=== PATIENT | male | born 1960 | race Caucasian/White ===

== ENCOUNTER 2025-09-27 00:54 | Inpatient (IN) | payer MEDICARE, OTHER ==
[2025-09-27] MEDS ORDERED: levETIRAcetam 500 MG (5 mL) VIAL ONE (01:00)
[2025-09-27] MEDS ORDERED: Ondansetron PF 4 MG/2 ML Vial ONE (01:04)
[2025-09-27] MEDS ORDERED: PROPOFOL 200 MG/20 ML VIAL ONE (01:11)
[2025-09-27] MEDS ORDERED: Rocuronium Bromide 10 MG/ML (10ML VIAL) ONE (01:11)
[2025-09-27 01:12] LABS: #Basophils 0.04 10x3/uL (0.0-0.2); #Eosinophils 0.06 10x3/uL (0.0-0.7); #Monocytes 0.83 10x3/uL (0.11-0.59); #Neutrophils 10.92 10x3/uL (1.40-6.50); %Basophils 0.3 % (0.0-1.0); %Eosinophils 0.4 % (0.0-10.0); %Lymphocytes 16.7 % (21.0-51.0); %Monocytes 5.8 % (0.0-10.0); %Neutrophils 76.0 % (42.0-75.0); Hematocrit 41.2 % (42.0-52.0); Hemoglobin 13.3 g/dL (14.0-18.0); Mean Corpuscular Hemoglobin 27.5 pg (27.0-31.0); Mean Corpuscular Volume 85.3 fL (78.0-98.0); Platelet Count 205 10x3/uL (130-400); Red Blood Cell (RBC) Count 4.83 mill/uL (4.70-6.10); White Blood Cell (WBC) Count 14.36 10x3/uL (4.8-10.8)
[2025-09-27] MEDS ORDERED: Norepinephrine 8 MG/0.9% NS 250 ML ONE (01:31)
[2025-09-27 01:36] LABS: ALT (SGPT) 56 U/L (Less than 45); AST (SGOT) 60 U/L (11-34); Albumin 3.9 g/dL (3.1-4.5); Alkaline Phosphatase 151 U/L (40-110); Anion Gap 23 mmol/L (10-20); BUN (Urea Nitrogen) 6 mg/dL (8.4-25.7); Bilirubin, Total 0.3 mg/dL (0.3-1.2); Calc. Creatinine Clearance 0 mL/min (70-130); Calcium 8.9 mg/dL (7.8-10.44); Carbon Dioxide 15 mmol/L (23-31); Chloride 102 mmol/L (98-107); Globulin 4.2 g/dL (2.4-3.5); Glucose 219 mg/dL (80-115); Potassium 3.3 mmol/L (3.5-5.1); Sodium 137 mmol/L (136-145)
[2025-09-27 01:43] LABS: Actual Bicarbonate (HCO3a) 18.8 mEq/L (22-28); Analyzer IN Cardio ER; Base Excess (BEa) -6.4 mEq/L (-2.0 to +3.0); CO2 Tension 36.6 mmHg (35.0-45.0); Calcium, Ionized (arterial) 1.13 mmol/L (1.12-1.30); Hematocrit-ABG 38 % (42.0-52.0); Hemoglobin (Hb) 12.9 g/dL (14.0-18.0); O2 Tension (PaO2), arterial 72.6 mmHg (> 80.0); Potassium - ABG Lab 3.13 mmol/L (3.70-5.30); pH, Arterial 7.329 (7.35-7.45)
[2025-09-27 01:51] LABS: Bacteria/HPF None Seen HPF (None Seen); CAUTI Indications for Culture Alt mental st,lethar; Glucose, Urine (Dipstick) Normal (Negative); Leukocyte Negative Leu/uL (Negative); Protein, Urine (Dipstick) 200 mg/dL (Neg-Trace); RBC/HPF 0-3 HPF (0-3); Specific Gravity, Urine 1.014 (1.002-1.036); WBC/HPF 0-3 HPF (0-3)
[2025-09-27 01:52] LABS: Urine Culture Reflex No No
[2025-09-27 01:55] LABS: Cocaine Metabolite Screen Negative (Negative); THC/Cannabinoid Screen Negative (Negative); Tricyclic Screen Negative (Negative)
[2025-09-27 02:19] LABS: INR-International Normal Ratio 1.1; Prothrombin Time 14.2 sec (12.0-14.7)
[2025-09-27 02:21] LABS: PTT 30.5 sec (22.9-36.1)
[2025-09-27] MEDS ORDERED: Electrolyte Replacement Protocol 1 EACH IVPB ONE (03:54)
[2025-09-27] MEDS ORDERED: Acetaminophen 325 MG (10.15 ML) UDCUP PO PRN (03:54)
[2025-09-27] MEDS ORDERED: Calcium Carbonate 500 MG ChewTAB PO PRN (03:56)
[2025-09-27] MEDS ORDERED: Ondansetron PF 4 MG/2 ML Vial IVP PRN (03:56)
[2025-09-27] MEDS ORDERED: Fentanyl BOLUS 100 ML IVPB PRN (04:00)
[2025-09-27] MEDS ORDERED: PHOS-NAK 1 PKT PACK PO PRN (04:00)
[2025-09-27] MEDS ORDERED: Propofol BOLUS 1,000 MG/100 ML VIAL IV PRN (04:00)
[2025-09-27] MEDS ORDERED: Ventilator Sedation Protocol 1 EACH FS SCH (04:00)
[2025-09-27] MEDS ORDERED: Potassium Chloride 20 MEQ in Premix 1 BAG IVPB PRN (04:00)
[2025-09-27] MEDS ORDERED: DISCONTINUE PREVIOUS NARCOTIC PAIN MEDICATIONS AND BENZODIAZEPINES FS SCH (04:00)
[2025-09-27] MEDS: levETIRAcetam 500 MG (5 mL) VIAL SLOW IVP SCH (08:20)
[2025-09-27] MEDS: Pantoprazole 40 MG VIAL IVP SCH (08:22)
[2025-09-27] MEDS ORDERED: Pantoprazole 40 MG VIAL IVP SCH (09:00)
[2025-09-27 10:02] LABS: ALT (SGPT) 44 U/L (Less than 45); AST (SGOT) 64 U/L (11-34); Albumin 2.9 g/dL (3.1-4.5); Alkaline Phosphatase 102 U/L (40-110); Anion Gap 15 mmol/L (10-20); BUN (Urea Nitrogen) 5 mg/dL (8.4-25.7); Bilirubin, Total 0.5 mg/dL (0.3-1.2); Calc. Creatinine Clearance 89 mL/min (70-130); Calcium 8.2 mg/dL (7.8-10.44); Carbon Dioxide 20 mmol/L (23-31); Chloride 109 mmol/L (98-107); Globulin 3.6 g/dL (2.4-3.5); Glucose 96 mg/dL (80-115); Magnesium 1.8 mg/dL (1.6-2.6); Potassium 4.7 mmol/L (3.5-5.1); Sodium 139 mmol/L (136-145)
[2025-09-27] MEDS: Multivitamins, Adult 10 ML, Folic Acid 1 MG, Thiamine HCl 100 MG in Dextrose 5 %-0.45 %... IV SCH (13:22)
[2025-09-27 13:32] LABS: Hematocrit 33.6 % (42.0-52.0); Hemoglobin 11.2 g/dL (14.0-18.0)
[2025-09-27] MEDS: Mupirocin 1 GM TUBE NASAL DECOLONIZATION TP SCH (23:01)
[2025-09-28 07:27] LABS: #Basophils 0.03 10x3/uL (0.0-0.2); #Eosinophils 0.12 10x3/uL (0.0-0.7); #Monocytes 1.27 10x3/uL (0.11-0.59); #Neutrophils 7.07 10x3/uL (1.40-6.50); %Basophils 0.3 % (0.0-1.0); %Eosinophils 1.1 % (0.0-10.0); %Lymphocytes 23.0 % (21.0-51.0); %Monocytes 11.5 % (0.0-10.0); %Neutrophils 63.8 % (42.0-75.0); Hematocrit 34.4 % (42.0-52.0); Hemoglobin 11.1 g/dL (14.0-18.0); Mean Corpuscular Hemoglobin 27.5 pg (27.0-31.0); Mean Corpuscular Volume 85.1 fL (78.0-98.0); Platelet Count 153 10x3/uL (130-400); Red Blood Cell (RBC) Count 4.04 mill/uL (4.70-6.10); White Blood Cell (WBC) Count 11.07 10x3/uL (4.8-10.8)
[2025-09-28 07:43] LABS: ALT (SGPT) 36 U/L (Less than 45); AST (SGOT) 49 U/L (11-34); Albumin 2.6 g/dL (3.1-4.5); Alkaline Phosphatase 94 U/L (40-110); Anion Gap 9 mmol/L (10-20); BUN (Urea Nitrogen) 6 mg/dL (8.4-25.7); Bilirubin, Total 0.8 mg/dL (0.3-1.2); Calc. Creatinine Clearance 95 mL/min (70-130); Calcium 7.8 mg/dL (7.8-10.44); Carbon Dioxide 23 mmol/L (23-31); Chloride 108 mmol/L (98-107); Globulin 2.9 g/dL (2.4-3.5); Glucose 105 mg/dL (80-115); Magnesium 1.4 mg/dL (1.6-2.6); Potassium 3.4 mmol/L (3.5-5.1); Sodium 137 mmol/L (136-145)
[2025-09-28 07:44] LABS: Actual Bicarbonate (HCO3a) 21.6 mEq/L (22-28); Base Excess (BEa) -2.0 mEq/L (-2.0 to +3.0); CO2 Tension 33.0 mmHg (35.0-45.0); Calcium, Ionized (arterial) 1.15 mmol/L (1.12-1.30); Hematocrit-ABG 37 % (42.0-52.0); Hemoglobin (Hb) 12.5 g/dL (14.0-18.0); O2 Tension (PaO2), arterial 99.8 mmHg (> 80.0); Potassium - ABG Lab 3.44 mmol/L (3.70-5.30); Puncture Site RR; pH, Arterial 7.433 (7.35-7.45)
[2025-09-28] MEDS: Mupirocin 1 GM TUBE NASAL DECOLOIZATION TP SCH (09:07)
[2025-09-28] MEDS: Multivit, Therapeutic 1 TAB PO SCH (11:56)
[2025-09-28] MEDS: Folic Acid 1 MG TAB PO SCH (11:56)
[2025-09-28] MEDS: Acetaminophen 325 MG TAB PO PRN (12:00)
[2025-09-28] MEDS: Acetaminophen 325 MG TAB ONE (12:46)
[2025-09-28] MEDS: DC Sedation Protocol FS ONE (21:54)
[2025-09-29] MEDS: Folic Acid 1 MG TAB PO SCH (08:18)
[2025-09-29] MEDS: hydrALAZINE 20 MG/ML VIAL SLOW IVP PRN (08:18)
[2025-09-29] MEDS: Sertraline 25 MG TAB PO SCH (08:20)
[2025-09-29] MEDS: Multivit, Therapeutic 1 TAB PO SCH (08:20)
[2025-09-29] MEDS: Lisinopril 20 MG TAB PO SCH (08:20)
[2025-09-29] MEDS ORDERED: cloNIDine 0.1mg/24 Hour PATCH TD SCH (09:00)
[2025-09-29 10:46] LABS: Anion Gap 12 mmol/L (10-20); BUN (Urea Nitrogen) 5 mg/dL (8.4-25.7); Calc. Creatinine Clearance 110 mL/min (70-130); Carbon Dioxide 18 mmol/L (23-31); Chloride 114 mmol/L (98-107); Potassium 4.1 mmol/L (3.5-5.1); Sodium 140 mmol/L (136-145)
[2025-09-29 10:47] LABS: ALT (SGPT) 39 U/L (Less than 45); AST (SGOT) 49 U/L (11-34); Albumin 2.7 g/dL (3.1-4.5); Alkaline Phosphatase 91 U/L (40-110); Bilirubin, Total 0.9 mg/dL (0.3-1.2); Calcium 8.3 mg/dL (7.8-10.44); Globulin 3.7 g/dL (2.4-3.5); Glucose 116 mg/dL (80-115); Magnesium 1.6 mg/dL (1.6-2.6)
[2025-09-29] MEDS: Magnesium 2 GM/50 ML(in water) 2 GM in Premix 1 BAG IVPB PRN (10:59)
[2025-09-30] MEDS: hydrALAZINE 20 MG/ML VIAL SLOW IVP PRN (03:21)
[2025-09-30 04:56] LABS: #Basophils 0.04 10x3/uL (0.0-0.2); #Eosinophils 0.52 10x3/uL (0.0-0.7); #Monocytes 0.69 10x3/uL (0.11-0.59); #Neutrophils 4.23 10x3/uL (1.40-6.50); %Basophils 0.6 % (0.0-1.0); %Eosinophils 7.3 % (0.0-10.0); %Lymphocytes 23.3 % (21.0-51.0); %Monocytes 9.6 % (0.0-10.0); %Neutrophils 59.1 % (42.0-75.0); Hematocrit 39.1 % (42.0-52.0); Hemoglobin 12.7 g/dL (14.0-18.0); Mean Corpuscular Hemoglobin 27.6 pg (27.0-31.0); Mean Corpuscular Volume 85.0 fL (78.0-98.0); Platelet Count 180 10x3/uL (130-400); Red Blood Cell (RBC) Count 4.60 mill/uL (4.70-6.10); White Blood Cell (WBC) Count 7.16 10x3/uL (4.8-10.8)
[2025-09-30 05:16] LABS: ALT (SGPT) 44 U/L (Less than 45); AST (SGOT) 55 U/L (11-34); Albumin 2.8 g/dL (3.1-4.5); Alkaline Phosphatase 95 U/L (40-110); Anion Gap 10 mmol/L (10-20); BUN (Urea Nitrogen) Less than 4 mg/dL (8.4-25.7); Bilirubin, Total 0.7 mg/dL (0.3-1.2); Calc. Creatinine Clearance 88 mL/min (70-130); Calcium 8.4 mg/dL (7.8-10.44); Carbon Dioxide 22 mmol/L (23-31); Chloride 113 mmol/L (98-107); Globulin 3.7 g/dL (2.4-3.5); Glucose 109 mg/dL (80-115); Magnesium 1.9 mg/dL (1.6-2.6); Potassium 3.7 mmol/L (3.5-5.1); Sodium 141 mmol/L (136-145)
[2025-10-01 04:28] LABS: #Basophils 0.03 10x3/uL (0.0-0.2); #Eosinophils 0.24 10x3/uL (0.0-0.7); #Monocytes 0.69 10x3/uL (0.11-0.59); #Neutrophils 3.07 10x3/uL (1.40-6.50); %Basophils 0.4 % (0.0-1.0); %Eosinophils 3.5 % (0.0-10.0); %Lymphocytes 40.5 % (21.0-51.0); %Monocytes 10.2 % (0.0-10.0); %Neutrophils 45.3 % (42.0-75.0); Hematocrit 34.8 % (42.0-52.0); Hemoglobin 11.4 g/dL (14.0-18.0); Mean Corpuscular Hemoglobin 27.6 pg (27.0-31.0); Mean Corpuscular Volume 84.3 fL (78.0-98.0); Platelet Count 207 10x3/uL (130-400); Red Blood Cell (RBC) Count 4.13 mill/uL (4.70-6.10); White Blood Cell (WBC) Count 6.79 10x3/uL (4.8-10.8)
[2025-10-01] MEDS: Thiamine 100 MG TAB PO SCH (08:40)
[2025-10-01] MEDS ORDERED: cloNIDine 0.1 MG TAB PO PRN (09:14)
[2025-10-01] MEDS: NIFEdipine XL 30 MG ER.TAB PO SCH (17:06)
[2025-10-01] MEDS: levETIRAcetam 500 MG TAB PO SCH (20:16)
[2025-10-01] MEDS: Lisinopril 20 MG TAB PO SCH (20:20)
[2025-10-01] MEDS: Pantoprazole 40 MG DR.TAB PO SCH (20:21)
[2025-10-02] MEDS: Guaifenesin DM 100-10/5 ML UDCUP PO PRN (00:54)
[2025-10-02 03:54] LABS: #Basophils 0.03 10x3/uL (0.0-0.2); #Eosinophils 0.17 10x3/uL (0.0-0.7); #Monocytes 0.77 10x3/uL (0.11-0.59); #Neutrophils 2.92 10x3/uL (1.40-6.50); %Basophils 0.5 % (0.0-1.0); %Eosinophils 2.6 % (0.0-10.0); %Lymphocytes 40.6 % (21.0-51.0); %Monocytes 11.7 % (0.0-10.0); %Neutrophils 44.3 % (42.0-75.0); Hematocrit 32.2 % (42.0-52.0); Hemoglobin 10.8 g/dL (14.0-18.0); Mean Corpuscular Hemoglobin 27.9 pg (27.0-31.0); Mean Corpuscular Volume 83.2 fL (78.0-98.0); Platelet Count 202 10x3/uL (130-400); Red Blood Cell (RBC) Count 3.87 mill/uL (4.70-6.10); White Blood Cell (WBC) Count 6.58 10x3/uL (4.8-10.8)
[2025-10-02] MEDS: NIFEdipine XL 30 MG ER.TAB PO SCH (09:36)
[2025-10-02 11:07] VITALS: BMI 27.0
[2025-10-03 03:35] LABS: #Basophils 0.04 10x3/uL (0.0-0.2); #Eosinophils 0.14 10x3/uL (0.0-0.7); #Monocytes 1.68 10x3/uL (0.11-0.59); #Neutrophils 14.71 10x3/uL (1.40-6.50); %Basophils 0.2 % (0.0-1.0); %Eosinophils 0.8 % (0.0-10.0); %Lymphocytes 8.5 % (21.0-51.0); %Monocytes 9.2 % (0.0-10.0); %Neutrophils 81.0 % (42.0-75.0); Hematocrit 33.9 % (42.0-52.0); Hemoglobin 11.1 g/dL (14.0-18.0); Mean Corpuscular Hemoglobin 27.5 pg (27.0-31.0); Mean Corpuscular Volume 84.1 fL (78.0-98.0); Platelet Count 216 10x3/uL (130-400); Red Blood Cell (RBC) Count 4.03 mill/uL (4.70-6.10); White Blood Cell (WBC) Count 18.17 10x3/uL (4.8-10.8)
[2025-10-04 05:21] LABS: #Basophils 0.03 10x3/uL (0.0-0.2); #Eosinophils 0.25 10x3/uL (0.0-0.7); #Monocytes 0.92 10x3/uL (0.11-0.59); #Neutrophils 4.72 10x3/uL (1.40-6.50); %Basophils 0.3 % (0.0-1.0); %Eosinophils 2.9 % (0.0-10.0); %Lymphocytes 30.7 % (21.0-51.0); %Monocytes 10.7 % (0.0-10.0); %Neutrophils 55.1 % (42.0-75.0); Hematocrit 34.2 % (42.0-52.0); Hemoglobin 11.5 g/dL (14.0-18.0); Mean Corpuscular Hemoglobin 28.0 pg (27.0-31.0); Mean Corpuscular Volume 83.4 fL (78.0-98.0); Platelet Count 225 10x3/uL (130-400); Red Blood Cell (RBC) Count 4.10 mill/uL (4.70-6.10); White Blood Cell (WBC) Count 8.58 10x3/uL (4.8-10.8)
[2025-10-04 05:30] LABS: ALT (SGPT) 32 U/L (Less than 45); AST (SGOT) 45 U/L (11-34); Albumin 2.9 g/dL (3.1-4.5); Alkaline Phosphatase 77 U/L (40-110); Anion Gap 10 mmol/L (10-20); BUN (Urea Nitrogen) 5 mg/dL (8.4-25.7); Bilirubin, Total 0.4 mg/dL (0.3-1.2); Calc. Creatinine Clearance 104 mL/min (70-130); Calcium 8.1 mg/dL (7.8-10.44); Carbon Dioxide 23 mmol/L (23-31); Chloride 109 mmol/L (98-107); Globulin 3.6 g/dL (2.4-3.5); Glucose 98 mg/dL (80-115); Magnesium 1.6 mg/dL (1.6-2.6); Potassium 3.0 mmol/L (3.5-5.1); Sodium 139 mmol/L (136-145)
[2025-10-04] MEDS: Potassium Chloride 20 MEQ in Premix 1 BAG IVPB SCH (09:40)
[2025-10-04 10:48] LABS: Potassium 4.0 mmol/L (3.5-5.1)
[2025-10-05 05:03] LABS: #Basophils 0.03 10x3/uL (0.0-0.2); #Eosinophils 0.31 10x3/uL (0.0-0.7); #Monocytes 1.08 10x3/uL (0.11-0.59); #Neutrophils 5.14 10x3/uL (1.40-6.50); %Basophils 0.3 % (0.0-1.0); %Eosinophils 3.2 % (0.0-10.0); %Lymphocytes 31.9 % (21.0-51.0); %Monocytes 11.2 % (0.0-10.0); %Neutrophils 53.1 % (42.0-75.0); Hematocrit 33.2 % (42.0-52.0); Hemoglobin 10.8 g/dL (14.0-18.0); Mean Corpuscular Hemoglobin 27.3 pg (27.0-31.0); Mean Corpuscular Volume 83.8 fL (78.0-98.0); Platelet Count 239 10x3/uL (130-400); Red Blood Cell (RBC) Count 3.96 mill/uL (4.70-6.10); White Blood Cell (WBC) Count 9.67 10x3/uL (4.8-10.8)
[2025-10-05 05:17] LABS: ALT (SGPT) 31 U/L (Less than 45); AST (SGOT) 42 U/L (11-34); Albumin 3.0 g/dL (3.1-4.5); Alkaline Phosphatase 78 U/L (40-110); Anion Gap 10 mmol/L (10-20); BUN (Urea Nitrogen) 9 mg/dL (8.4-25.7); Bilirubin, Total 0.3 mg/dL (0.3-1.2); Calc. Creatinine Clearance 92 mL/min (70-130); Calcium 8.2 mg/dL (7.8-10.44); Carbon Dioxide 25 mmol/L (23-31); Chloride 107 mmol/L (98-107); Globulin 3.5 g/dL (2.4-3.5); Glucose 112 mg/dL (80-115); Magnesium 1.4 mg/dL (1.6-2.6); Potassium 3.4 mmol/L (3.5-5.1); Sodium 139 mmol/L (136-145)
[2025-10-05] MEDS: Magnesium 2 GM/50 ML(in water) 2 GM in Premix 1 BAG IVPB SCH (09:18)
[2025-10-05 11:41] LABS: Potassium 3.7 mmol/L (3.5-5.1)
[2025-10-06 04:09] LABS: #Basophils 0.05 10x3/uL (0.0-0.2); #Eosinophils 0.32 10x3/uL (0.0-0.7); #Monocytes 1.06 10x3/uL (0.11-0.59); #Neutrophils 4.84 10x3/uL (1.40-6.50); %Basophils 0.5 % (0.0-1.0); %Eosinophils 3.3 % (0.0-10.0); %Lymphocytes 34.9 % (21.0-51.0); %Monocytes 11.0 % (0.0-10.0); %Neutrophils 50.0 % (42.0-75.0); Hematocrit 35.2 % (42.0-52.0); Hemoglobin 11.5 g/dL (14.0-18.0); Mean Corpuscular Hemoglobin 27.9 pg (27.0-31.0); Mean Corpuscular Volume 85.4 fL (78.0-98.0); Platelet Count 257 10x3/uL (130-400); Red Blood Cell (RBC) Count 4.12 mill/uL (4.70-6.10); White Blood Cell (WBC) Count 9.67 10x3/uL (4.8-10.8)
[2025-10-06 04:19] LABS: ALT (SGPT) 31 U/L (Less than 45); AST (SGOT) 58 U/L (11-34); Albumin 3.3 g/dL (3.1-4.5); Alkaline Phosphatase 80 U/L (40-110); Anion Gap 10 mmol/L (10-20); BUN (Urea Nitrogen) 11 mg/dL (8.4-25.7); Bilirubin, Total 0.4 mg/dL (0.3-1.2); Calc. Creatinine Clearance 96 mL/min (70-130); Calcium 8.5 mg/dL (7.8-10.44); Carbon Dioxide 28 mmol/L (23-31); Chloride 105 mmol/L (98-107); Globulin 3.7 g/dL (2.4-3.5); Glucose 91 mg/dL (80-115); Magnesium 1.9 mg/dL (1.6-2.6); Potassium 3.9 mmol/L (3.5-5.1); Sodium 139 mmol/L (136-145)
[2025-10-06 07:35] VITALS: BMI 26.9
[2025-10-06 15:52] VITALS: BP 133/81; TEMP 98.4
== END 2025-10-06 17:07 | disposition home health service (06) | DRG 100 ==
LOC: ERS 00:54 → CCU 04:39 → 2SE 10-01 18:13
PROVIDERS: ADMIT Student in an Organized Health Care Education/Training Program; ATTEND Student in an Organized Health Care Education/Training Program
PROC: XX20X89 Monitoring of Brain Electrical Activity, Computer-aided Detection and Notification, New Technology Group 9 (ICD-10-PCS; principal; 2025-09-27)
PROC: 5A1945Z Respiratory Ventilation, 24-96 Consecutive Hours (ICD-10-PCS; 2025-09-27)
PROC: 0BH17EZ Insertion of Endotracheal Airway into Trachea, Via Natural or Artificial Opening (ICD-10-PCS; 2025-09-27)
PROC: 4A133R1 Monitoring of Arterial Saturation, Peripheral, Percutaneous Approach (ICD-10-PCS; 2025-09-27)
PROC: 3E03329 Introduction of Other Anti-infective into Peripheral Vein, Percutaneous Approach (ICD-10-PCS; 2025-09-28)
DX: G40.801 Other epilepsy, not intractable, with status epilepticus (principal); G93.41 Metabolic encephalopathy; J96.01 Acute respiratory failure with hypoxia; K92.2 Gastrointestinal hemorrhage, unspecified; F33.9 Major depressive disorder, recurrent, unspecified; F10.139 Alcohol abuse with withdrawal, unspecified; E87.20 Acidosis, unspecified; I10 Essential (primary) hypertension; D64.9 Anemia, unspecified; Z91.148 Patient's other noncompliance with medication regimen for other reason; E87.6 Hypokalemia; R74.01 Elevation of levels of liver transaminase levels; Z79.82 Long term (current) use of aspirin; Z79.899 Other long term (current) drug therapy
CPT/HCPCS: 31500; 36415; 36416; 51702; 70450; 71045; 80053; 80177; 80306; 81001; 82805; 83605; 83690; 83735; 84100; 84146; 85025; 85610; 85730; 86850; 86900; 86901; 87086; 93005; 94002; 94003; 95819; 96365; 96366; 96367; 96375; 99292; J0360; J1953; J2060; J2250; J2405; J2470; J2543; J2560; J2704; J3411; J3475; J7042; J7120